=== PATIENT | male | born 1950 | race Caucasian/White ===

== ENCOUNTER 2018-02-22 20:29 | Emergency (ER) | payer OTHER, MEDICARE ==
[2018-02-22] MEDS ORDERED: VANCOMYCIN HCL 500 MG in D5W MINI-BAG PLUS 100 ML IV (21:45)
[2018-02-22] MEDS ORDERED: CEFEPIME HCL 1 GM in D5W MINI-BAG PLUS 50 ML IV (21:45)
[2018-02-22 22:55] LABS: BASO # 0.1 10^3/uL (0.0-0.2); BASO % 0.7 % (0.0-1.0); EOS # 0.2 10^3/uL (0.0-0.50); EOS % 1.5 % (0.0-3.0); HEMATOCRIT 32.4 % (42.0-52.0); IMMATURE GRANULOCYTE % 4.6 % (0-3.0); LYMPH # 1.4 10^3/uL (1.5-4.5); LYMPH % 10.9 % (24.0-44.0); MEAN CORPUSCULAR HEMOGLOBIN 30.9 pg (27.0-33.0); MONO # 1.5 10^3/uL (0.0-0.8); NEUTROPHILS # 8.9 10^3/uL (1.8-7.7); NEUTROPHILS % 70.3 % (36.0-66.0); PLATELET COUNT, AUTOMATED 239 10^3/uL (150-450); RED BLOOD COUNT 3.56 10^6/uL (4.30-6.10); RED CELL DISTRIBUTION WIDTH 13.2 % (11.5-14.5); WHITE BLOOD COUNT 12.7 10^3/uL (4.0-10.0)
[2018-02-22 23:18] LABS: ANION GAP 10 MEQ/L (8-16); BLOOD UREA NITROGEN 23 MG/DL (7-18); CALCIUM LEVEL 8.4 MG/DL (8.8-10.2); CARBON DIOXIDE LEVEL 22 MEQ/L (21-32); CHLORIDE LEVEL 102 MEQ/L (98-107); GLOMERULAR FILTRATION RATE > 60.0 (>42); GLUCOSE, FASTING 135 MG/DL (70-100); SODIUM LEVEL 134 MEQ/L (136-145)
[2018-02-23 00:13] LABS: C REACTIVE PROTEIN QUANTITATIV 9.96 MG/DL (0.00-0.30)
== END 2018-02-23 01:38 | disposition short-term general hospital (02) ==
LOC: M ED 02-23 01:38
DX: M00.9 Pyogenic arthritis, unspecified (principal); Z96.652 Presence of left artificial knee joint; I10 Essential (primary) hypertension; I25.10 Atherosclerotic heart disease of native coronary artery without angina pectoris; K21.9 Gastro-esophageal reflux disease without esophagitis; Z79.899 Other long term (current) drug therapy; Z79.01 Long term (current) use of anticoagulants; Z88.8 Allergy status to other drugs, medicaments and biological substances
CPT/HCPCS: 73560

== ENCOUNTER 2018-05-11 09:24 | Inpatient (IN) | payer MEDICARE, OTHER ==
[2018-05-11] MEDS: ONDANSETRON 4MG/2ML VIAL (J2405) IV (09:58)
[2018-05-11] MEDS: MORPHINE 4 MG/ML 1ML VIAL/SYRINGE (J2270) IV ×5 (09:58→17:45)
[2018-05-11] MEDS: NS 1,000 ML IV (10:03)
[2018-05-11] MEDS ORDERED: NS 1,000 ML IV (10:45)
[2018-05-11 11:34] LABS: BASO # 0.1 10^3/uL (0.0-0.2); BASO % 0.6 % (0.0-1.0); EOS # 0.2 10^3/uL (0.0-0.50); EOS % 2.7 % (0.0-3.0); HEMATOCRIT 35.5 % (42.0-52.0); HEMOGLOBIN 11.2 g/dl (13.5-17.5); IMMATURE GRANULOCYTE % 0.5 % (0-3.0); LYMPH # 0.6 10^3/uL (1.5-4.5); LYMPH % 6.7 % (24.0-44.0); MEAN CORPUSCULAR HEMOGLOBIN 26.7 pg (27.0-33.0); MEAN CORPUSCULAR HGB CONC 31.5 g/dl (32.0-36.5); MEAN CORPUSCULAR VOLUME 84.5 fl (80.0-96.0); MONO # 0.6 10^3/uL (0.0-0.8); MONO % 6.5 % (0.0-5.0); PLATELET COUNT, AUTOMATED 155 10^3/uL (150-450); RED CELL DISTRIBUTION WIDTH 13.3 % (11.5-14.5); WHITE BLOOD COUNT 8.4 10^3/uL (4.0-10.0)
[2018-05-11 11:45] LABS: INR 1.05; PROTHROMBIN TIME 13.8 SECONDS (12.1-14.4)
[2018-05-11 12:08] LABS: ALBUMIN 3.3 GM/DL (3.2-5.2); ALKALINE PHOSPHATASE 71 U/L (45-117); ALT/SGPT 33 U/L (12-78); ANION GAP 6 MEQ/L (8-16); AST/SGOT 25 U/L (7-37); BILIRUBIN,TOTAL 0.5 MG/DL (0.2-1.0); BLOOD UREA NITROGEN 20 MG/DL (7-18); CALCIUM LEVEL 7.9 MG/DL (8.8-10.2); CARBON DIOXIDE LEVEL 26 MEQ/L (21-32); CHLORIDE LEVEL 112 MEQ/L (98-107); CREATININE FOR GFR 1.02 MG/DL (0.70-1.30); GLOMERULAR FILTRATION RATE > 60.0 (>42); GLUCOSE, FASTING 118 MG/DL (70-100); POTASSIUM SERUM 4.4 MEQ/L (3.5-5.1); SODIUM LEVEL 144 MEQ/L (136-145); TOTAL PROTEIN 5.5 GM/DL (6.4-8.2)
[2018-05-11] MEDS ORDERED: PERCOCET 5MG/325MG TAB PO ×2 (14:00→23:00)
[2018-05-11] MEDS ORDERED: ONDANSETRON 4MG/2ML VIAL (J2405) IV (14:00)
[2018-05-11] MEDS: LR 1,000 ML IV (15:36)
[2018-05-11] MEDS ORDERED: BUPIVACAINE/EPIN 0.25% 30 ML VIAL As Ordered (21:09)
[2018-05-11] MEDS ORDERED: dexameTHASONE 4 MG/ML 1ML VIAL (J1100) As Ordered (22:09)
[2018-05-11] MEDS ORDERED: ONDANSETRON 4MG/2ML VIAL (J2405) As Ordered (22:09)
[2018-05-11] MEDS ORDERED: LIDOCAINE 2% INJ 100 MG/5 ML SDV (FOR ANES.) As Ordered (22:09)
[2018-05-11] MEDS ORDERED: fentaNYL 100 MCG/2 ML INJECTION (J3010) As Ordered (22:09)
[2018-05-11] MEDS ORDERED: MIDAZOLAM INJ 2 MG/2 ML VIAL (J2250) As Ordered (22:09)
[2018-05-11] MEDS ORDERED: KETAMINE HCL 200 MG/20 ML VIAL As Ordered (22:09)
[2018-05-11] MEDS ORDERED: ePHEDrine SULFATE 25 MG/5 ML(5MG/ML) SYRINGE As Ordered (22:10)
[2018-05-11] MEDS ORDERED: BUPIVACAINE HCL 0.5% 30 ML VIAL As Ordered (22:10)
[2018-05-11] MEDS: ceFAZolin 1GM INJ (J0690 PER 500MG) As Ordered (22:12)
[2018-05-11] MEDS ORDERED: PROPOFOL 200 MG/20 ML VIAL As Ordered ×3 (22:30)
[2018-05-12] MEDS: rOPINIRole 1MG TAB PO ×2 (00:41→09:45)
[2018-05-12] MEDS: SENOKOT S TAB PO ×2 (00:41→09:45)
[2018-05-12] MEDS: ROSUVASTATIN 10 MG TAB (CRESTOR) PO (00:41)
[2018-05-12] MEDS: METOPROLOL TART 12.5 MG PER 1/2 TAB PO (00:41)
[2018-05-12] MEDS: LR 1,000 ML IV (00:41)
[2018-05-12] MEDS: PERCOCET 5MG/325MG TAB PO ×4 (02:40→15:55)
[2018-05-12 06:41] LABS: HEMATOCRIT 32.9 % (42.0-52.0); HEMOGLOBIN 10.3 g/dl (13.5-17.5); MEAN CORPUSCULAR HEMOGLOBIN 25.9 pg (27.0-33.0); MEAN CORPUSCULAR HGB CONC 31.3 g/dl (32.0-36.5); MEAN CORPUSCULAR VOLUME 82.9 fl (80.0-96.0); PLATELET COUNT, AUTOMATED 132 10^3/uL (150-450); RED BLOOD COUNT 3.97 10^6/uL (4.30-6.10); RED CELL DISTRIBUTION WIDTH 13.3 % (11.5-14.5); WHITE BLOOD COUNT 8.5 10^3/uL (4.0-10.0)
[2018-05-12 07:10] LABS: ANION GAP 8 MEQ/L (8-16); BLOOD UREA NITROGEN 16 MG/DL (7-18); CALCIUM LEVEL 8.4 MG/DL (8.8-10.2); CARBON DIOXIDE LEVEL 25 MEQ/L (21-32); CHLORIDE LEVEL 105 MEQ/L (98-107); CREATININE FOR GFR 1.21 MG/DL (0.70-1.30); GLOMERULAR FILTRATION RATE > 60.0 (>42); GLUCOSE, FASTING 242 MG/DL (70-100); MAGNESIUM LEVEL 1.8 MG/DL (1.8-2.4); POTASSIUM SERUM 4.1 MEQ/L (3.5-5.1); SODIUM LEVEL 138 MEQ/L (136-145)
[2018-05-12] MEDS: PANTOPRAZOLE 40MG TAB (PROTONIX) PO (09:45)
[2018-05-12] MEDS: LISINOPRIL 5 MG TAB PO (09:46)
[2018-05-12] MEDS ORDERED: RIVAROXABAN 10 MG TAB (XARELTO) PO (18:00)
== END 2018-05-12 16:10 | disposition home or self-care (01) | DRG 482 ==
LOC: M ED 09:24 → M ED INP 13:56 → M MS5PR 17:10
PROC: 0QS706Z Reposition Left Upper Femur with Intramedullary Internal Fixation Device, Open Approach (ICD-10-PCS; principal; 2018-05-11 13:32)
DX: S72.142A Displaced intertrochanteric fracture of left femur, initial encounter for closed fracture (principal); I25.10 Atherosclerotic heart disease of native coronary artery without angina pectoris; K21.9 Gastro-esophageal reflux disease without esophagitis; E78.5 Hyperlipidemia, unspecified; I10 Essential (primary) hypertension; G25.81 Restless legs syndrome; G47.33 Obstructive sleep apnea (adult) (pediatric); W18.09XA Striking against other object with subsequent fall, initial encounter; Y92.018 Other place in single-family (private) house as the place of occurrence of the external cause; Z95.1 Presence of aortocoronary bypass graft; Z90.49 Acquired absence of other specified parts of digestive tract; Z87.891 Personal history of nicotine dependence; Z79.82 Long term (current) use of aspirin; Z79.899 Other long term (current) drug therapy; Z96.652 Presence of left artificial knee joint

== ENCOUNTER → 2018-08-16 | Outpatient (REF) | payer MEDICARE, OTHER ==
[~2018-08-16] MED LIST: /ACYC20CA PO; /PANT40TA PO; ACYC200CA PO; AMLO25TA PO; ASPI325T PO; ASPI81CH PO; ASPI81TA85 PO; ATOR1TAB21 PO; ATOR80TA59 PO; AUGM875T27 PO; BETA0.0543 TOP; CIPR500T89 PO; CRES10TA32 PO; CRES40TA PO; EXCETAB68 PO; FLAG500T PO; FLUO20CA19 PO; FURO20TA2 PO; FURO80TA2 PO; IBUP600T26 PO; ISOS30TA4 PO; ISOS60TA2 PO; K-TA10TA2 PO; K-TA1TAB PO; LISI-538 PO; LISI-542 PO; LISI40TAB PO; LISI5TAB PO; METH20TA29 PO; METH5TAB76 PO; METO1TAB87 PO; METO25TAB PO; NEUR600T PO; NITR4TASL SL; OMEP20CA3 PO; OXYC30TA84 PO; PANT40TA3 PO; PERC5TAB12 PO; PERCOCET PO; ROPI1TAB PO; ROPI2TAB PO; SIME80TA PO; SIMV40TA2 PO; SIMV80TA13 PO; TEMA15CA2 PO; TRAZO50TA PO; TYLE325T5 PO; VIAG100T PO; XARE10TA PO; ZOCO20TA PO
[2018-08-16 23:00] LABS: INFLUENZA A AMPLIFICATION NEGATIVE (NEGATIVE); INFLUENZA B AMPLIFICATION NEGATIVE (NEGATIVE)
== END ==
LOC: M LAB REF 10:36
PROVIDERS: ATTEND Physician Assistant Medical
DX: J11.1 Influenza due to unidentified influenza virus with other respiratory manifestations (principal)

== ENCOUNTER 2020-05-14 12:59 | Inpatient (IN) | payer MEDICARE, OTHER ==
[~2020-05-14 12:59] MED LIST changes: -/ACYC20CA PO; -/PANT40TA PO; +ACYC1CAP20 PO; +ACYC1CAP8 PO; -ACYC200CA PO; +ASPI-1 PO; -ASPI325T PO; -ASPI81CH PO; +ASPI81CH49 PO; -ASPI81TA85 PO; +ASPI81TA86 PO; +CRES10TA PO; -CRES10TA32 PO; -FLUO20CA19 PO; +FLUO20CA22 PO; +LISI40TA52 PO; -LISI40TAB PO; +METO1TAB63 PO; -METO25TAB PO; +OXYC1TAB23 PO; +PANT40TA29 PO; -PANT40TA3 PO; -PERCOCET PO; +PROT1TAB2 PO; -ROPI1TAB PO; +ROPI1TAB3 PO; -SIMV40TA2 PO; +SIMV40TA20 PO; +TRAZ1TAB6 PO; -TRAZO50TA PO
[2020-05-14 14:20] LABS: BASO % 0.5 % (0.0-1.0); EOS # 0.1 10^3/uL (0.0-0.5); EOS % 1.2 % (0.0-3.0); HEMATOCRIT 47.3 % (42.0-52.0); HEMOGLOBIN 15.4 g/dl (13.5-17.5); LYMPH # 0.8 10^3/uL (1.5-5.0); LYMPH % 11.8 % (24.0-44.0); MEAN CORPUSCULAR HGB CONC 32.6 g/dl (32.0-36.5); MONO # 0.3 10^3/uL (0.0-0.8); MONO % 5.1 % (0.0-5.0); NEUTROPHILS # 5.2 10^3/uL (1.5-8.5); PLATELET COUNT, AUTOMATED 145 10^3/uL (150-450); WHITE BLOOD COUNT 6.4 10^3/uL (4.0-10.0)
[2020-05-14 14:32] LABS: INR 1.09; PROTHROMBIN TIME 14.3 SECONDS (12.5-14.3)
[2020-05-14 15:06] LABS: ACETAMINOPHEN LEVEL < 2.0 UG/ML (10.0-30.0); ALBUMIN 3.9 GM/DL (3.2-5.2); ALT/SGPT 39 U/L (12-78); BILIRUBIN,DIRECT 0.2 MG/DL (0.0-0.2); BILIRUBIN,TOTAL 0.5 MG/DL (0.2-1.0); BLOOD UREA NITROGEN 13 MG/DL (7-18); CALCIUM LEVEL 8.6 MG/DL (8.8-10.2); CARBON DIOXIDE LEVEL 26 MEQ/L (21-32); CHLORIDE LEVEL 106 MEQ/L (98-107); CREATININE FOR GFR 0.97 MG/DL (0.70-1.30); GLOMERULAR FILTRATION RATE > 60.0 (>42); GLUCOSE, FASTING 105 MG/DL (70-100); LIPASE 154 U/L (73-393); POTASSIUM SERUM 3.9 MEQ/L (3.5-5.1); SALICYLATE LEVEL < 1.7 MG/DL (5.0-30.0); SODIUM LEVEL 137 MEQ/L (136-145); TOTAL PROTEIN 7.1 GM/DL (6.4-8.2)
[2020-05-14 15:59] LABS: AMPHETAMINES LEVEL URINE NEGATIVE (NEGATIVE); BARBITURATES URINE NEGATIVE (NEGATIVE); BENZODIAZEPINES URINE NEGATIVE (NEGATIVE); CANNABINOIDS URINE NEGATIVE (NEGATIVE); COCAINE METABOLITE URINE NEGATIVE (NEGATIVE); METHADONE URINE NEGATIVE (NEGATIVE); OPIATES URINE NEGATIVE (NEGATIVE); PHENCYCLIDINE URINE NEGATIVE (NEGATIVE)
--- NOTE | 2020-05-14 19:11 | REP ---
INDICATION: swelling COMPARISON: None. FINDINGS: There is no fracture or dislocation. There is demineralization. There is a DIP and PIP joint space narrowing compatible with early osteoarthritic change. There is advanced osteoarthritis at the thumb base. There are no lytic, blastic or destructive skeletal changes. There are no calcifications or foreign bodies. I suspect soft tissue swelling at the thenar eminence. There is no soft tissue swelling over the dorsum. IMPRESSION: Osteoarthritic changes as described. No fracture or dislocation. No calcifications or foreign bodies. Soft tissue swelling as described. <Electronically signed by Nick Vega > 05/14/20 [id number]
[2020-05-14] MEDS ORDERED: LORazepam 2 MG TAB PO PRN ×2 (19:45→20:30)
[2020-05-14] MEDS ORDERED: SERT-138 PO (20:14)
[2020-05-14] MEDS ORDERED: ASPI81TA26 PO (20:14)
[2020-05-14] MEDS ORDERED: TRAZ-186 PO (20:14)
[2020-05-14] MEDS ORDERED: MAGN400T2 PO (20:14)
[2020-05-14] MEDS ORDERED: BETA0.0543 TOP (20:14)
[2020-05-14] MEDS ORDERED: [UNRECOGNIZED DRUG - OTHER] (20:16)
[2020-05-14] MEDS ORDERED: MOM 30ML SUSPENSION UDC PO PRN (20:30)
[2020-05-14] MEDS ORDERED: ACETAMINOPHEN TAB 650MG DOSE (2X325MG) PO PRN (20:30)
[2020-05-14] MEDS ORDERED: MAALOX 30 ML SUSP *UDC PO PRN (20:30)
[2020-05-14] MEDS ORDERED: OLANZapine ORAL DISINTEGRATING TAB 5MG PO PRN (20:30)
[2020-05-14] MEDS ORDERED: COMMENTS (20:31)
[2020-05-14] MEDS ORDERED: THIAMINE 100 MG TAB PO SCH (21:00)
[2020-05-14 22:11] VITALS: BP 132/70
[2020-05-14 22:22] VITALS: BP 132/70
[2020-05-14] MEDS: METOPROLOL TART 25 MG TABLET PO SCH (22:26)
[2020-05-14] MEDS: traZODone 50 MG TAB PO PRN (22:28)
[2020-05-14] MEDS: THIAMINE 100 MG TAB PO SCH (22:28)
[2020-05-14] MEDS: MAGNESIUM OXIDE 400 MG TAB (MAG-OX) PO SCH (22:28)
[2020-05-14] MEDS: rOPINIRole 1MG TAB PO SCH (22:41)
[2020-05-14] MEDS: ROSUVASTATIN 10 MG TAB (CRESTOR) PO SCH (22:41)
[2020-05-15 06:17] VITALS: BP 142/78
[2020-05-15 06:20] VITALS: BP 142/78
[2020-05-15] MEDS: SERTRALINE HCL 50 MG TAB PO SCH (08:46)
[2020-05-15] MEDS: ASPIRIN 81 MG ENTERIC TAB PO SCH (08:47)
[2020-05-15] MEDS: rOPINIRole 1MG TAB PO SCH ×2 (08:47→20:21)
[2020-05-15] MEDS: MAGNESIUM OXIDE 400 MG TAB (MAG-OX) PO SCH ×2 (08:47→21:31)
[2020-05-15] MEDS: FOLIC ACID 1 MG TAB PO SCH (08:48)
[2020-05-15] MEDS: PANTOPRAZOLE 40MG TAB (PROTONIX) PO SCH (08:49)
[2020-05-15] MEDS: lisinopriL 5 MG TAB PO SCH (08:49)
[2020-05-15] MEDS: MULTIVITAMINS/MINERALS THERAP 1 TAB PO SCH (08:49)
[2020-05-15] MEDS: THIAMINE 100 MG TAB PO SCH ×2 (08:50→20:18)
[2020-05-15] MEDS ORDERED: FOLIC ACID 1 MG TAB PO SCH (09:00)
[2020-05-15] MEDS ORDERED: MULTIVITAMINS/MINERALS THERAP 1 TAB PO SCH (09:00)
[2020-05-15] MEDS ORDERED: ISOSORBIDE MON. (IMDUR) 60 MG XR TAB PO SCH (09:00)
[2020-05-15] MEDS ORDERED: SERTRALINE 100 MG TAB PO SCH (09:00)
--- NOTE | 2020-05-15 13:28 | MHHPEPDOC ---
General Date Of Admission: May 14, 2020 Legal Status: 9.39 Chief Complaint "I was working on peeling garlic and the next thing I know I was on the floor. 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 According to his , she called 911 because he was intoxicated and fell on the kitchen floor. When he was brought tot ED, he was uncooperative with the Police and EMS and [facility] staff. Patient's provided collateral reporting that he had been making frequent suicidal comments to her, expressing hopelessness. She reports that he drinks to intoxication and is at risk for suicide. He reports that he has stopped taking his medications and has been admitted for Alcohol Use. His Blood Alcohol was 0.23 Psychiatric Review of Systems Depression (2 or more weeks): depressed mood, insomnia/hypersomnia (chronic sleep issues: Apnea and restless leg syndrome), psychomotor changes Danielle (4 or more days of): denies Psychosis: denies PTSD: denies Anxiety: denies Past Psychiatric History Previous Psychiatric Diagnosis: Depression Previous Psychiatric Admissions: Second hospitalization Suicide Attempts: No history, no ideation in the past (per , he has been making more suicidal statements in the last few weeks) Psychiatric Follow-up: [facility], sees Dr. Roth and Therapist Octavio Psychiatric medications: Zoloft 150 mg Past Medical History Medical Problems Low blood pressure Cardiac/blood pressure Cholesterol Restless Leg Sleep Apnea ETOH - denies that this is a problem "I don't have to drink, I don't have to spend my last few dollars to get a drink, I don't dwell on it." Quadruple By Pass Gall Bladder Surgery Appendectomy Left Knee Replacement x 2 Left Hip Pinned Head Injury: Yes Seizures: No Hospitalizations: Yes Surgeries: Yes Family Medical/Psychiatric HX Medical Problems Father - of [place], history of Throat Cancer Mother - of old age, diabetic Sister - Metastatic Cancer Brother - probable ETOH Psychiatric Disorders: No Addiction: Yes Suicide Attemps/Completions: No Addiction History nicotine (History of use, stopped in 1985), alcohol (Sporadic use, drink 2-3 times per week and other times not at all - will have 4-5 shots of Vodka if he drinks. Had a 30 year of Sobriety, relapsed in 2016) Social History Childhood: Born in [place], both parents growing up, 2 brothers and 2 sister (now only 1 brother and 1 sister) Patient was second to the youngest Abuse/Trauma: denies Current Living Situation: Currently living with , one dog in [place] Education: Bachelor's degree in Accounting and Economics Employment: [employer], [employer] [place] - Currently Retired Social Support: and Family Legal: past history - had some time in [facility] senior care and [facility] Marital: 49 1/2 years. Mental Status Examination General Appearance: well groomed, appears stated age, hospital scubs/clothing Build: overweight Demeanor: average, other (minimizing) Eye Contact: average Activity: average Behavior: cooperative Speech: clear, normal volume, reg/rate,rhythm,volume Mood: euthymic Affect: full Thought Process: logical/linear Thought Content (Delusions): none reported Thought Content (Other): none reported Thought Content (Aggressive): none reported Perception (Hallucinations): none reported Perception (Other): none reported Cognition (Impairment of): none reported Cognition(Intelligence Est.): average Oriented: Awake, Alert, Oriented times three Insight: fair Judgment: Fair Psychosis: Denies Diagnoses Unspecified Depressive Disorder Alcohol Use Disorder Alcohol Intoxication A-FIB/CHADSVASC A-FIB History Current/History of A-Fib/PAF?: No Assessment Patient presents today with no depressive symptoms, denies suicidality, he also denies that he has an alcohol problem. He is [facility] at [facility] in [place] and sees a psychiatrist Gonzalez and Therapist Octavio. Prior to his psychiatric interview, he had a hypotensive episode, reporting feeling extremely dizzy, lightheaded, nauseous and having difficulty walking, stated that he felt like he was going to vomit. In his interview, patient appears to minimize his drinking, but it was forwarded on to me that patient is starting an addiction treatment at the [facility]. He states that he doesn't have to drink and that he doesn't drink often. His accounting of his substance use is vastly different than his 's reporting, whom I believe to be a better historian for this patient. According to his , the garbage is full of liquor bottles and he drinks it with soda therefore it is difficult to gauge how much he is drinking according to hsi . Patient to start his home medications. At this time, we will observe for any syncopal or hypotensive issues. He will be admitted to [facility] on a 9.39 legal status for depression and suicidal ideation, and will be discharged when he is stable. Initial Treatment Plan 1. Patient was admitted on a [9.39] status. 2. Complete history was obtained. 3. With patients permission, family will be contacted and database will be expanded. 4. Patients medication regimen will be reviewed and changed accordingly. 5. Patient will be provided with protected environment. 6. Patient will be treated with individual, group, and milieu therapies. 7. Patient will receive supportive psych-education. 8. Discharge planning will commence immediately. 9. Outpatient follow-up treatment will be strongly recommended. 10. The initial treatment plan will focus initially on: * Depression. * Risk for suicide * Alcohol Use. ESTIMATED LENGTH OF STAY: 3-5 DAYS. TIME SPENT COUNSELING AND COORDINATING INITIAL CARE: 50 minutes. Vital Signs Vital Signs Date Time Temp Pulse Resp B/P (MAP) Pulse Ox O2 Delivery O2 Flow Rate FiO2 05/15/20 08:47 138/80 05/15/20 06:20 98.2 60 16 Room Air 05/14/20 22:11 95 Laboratory Data 24H Labs Laboratory Tests 2 05/14/20 13:55: Immature Granulocyte % (Auto) 1.4, Neutrophils (%) (Auto) 80.0H, Lymphocytes (%) (Auto) 11.8L, Monocytes (%) (Auto) 5.1H, Eosinophils (%) (Auto) 1.2, Basophils (%) (Auto) 0.5, Neutrophils # (Auto) 5.2, Lymphocytes # (Auto) 0.8L, Monocytes # (Auto) 0.3, Eosinophils # (Auto) 0.1, Basophils # (Auto) 0.0, Nucleated Red Blood Cells % (auto) 0.0, Prothrombin Time 14.3H, Prothromb Time International Ratio 1.09, Anion Gap 5L, Glomerular Filtration Rate > 60.0, Calcium Level 8.6L, Total Bilirubin 0.5, Direct Bilirubin 0.2, Aspartate Amino Transf (AST/SGOT) 25, Alanine Aminotransferase (ALT/SGPT) 39, Alkaline Phosphatase 95, Total Protein 7.1, Albumin 3.9, Albumin/Globulin Ratio 1.2, Lipase 154, Salicylates Level < 1.7L, Acetaminophen Level < 2.0L, Ethyl Alcohol Level 0.230H 05/14/20 15:13: Urine Opiates Screen NEGATIVE, Urine Methadone Screen NEGATIVE, Urine Barbiturates Screen NEGATIVE, Urine Phencyclidine Screen NEGATIVE, Urine Amphetamines Screen NEGATIVE, Urine Benzodiazepines Screen NEGATIVE, Urine Cocaine Metabolite Screen NEGATIVE, Urine Cannabinoids Screen NEGATIVE 05/14/20 19:47: Coronavirus (COVID-19)(PCR) NEGATIVE, Influenza Type A (RT-PCR) NEGATIVE, Influenza Type B (RT-PCR) NEGATIVE, Respiratory Syncytial Virus (PCR) NEGATIVE CBC/BMP Laboratory Tests 05/14/20 13:55 Medications Scheduled Aspirin (Aspirin EC) 81 Mg Tablet.dr, 81 MG PO DAILY, (Reported) Isosorbide Mononitrate (Isosorbide Mononitrate ER) 60 Mg Tab, 60 MG PO DAILY, (Reported) Lisinopril (Lisinopril) 5 Mg Tab, 2.5 MG PO DAILY, (Reported) Magnesium Oxide (Magnesium Oxide) 400 Mg Tablet, 400 MG PO BID, (Reported) Metoprolol Tartrate (Metoprolol Tartrate) 25 Mg Tab, 12.5 MG PO QHS, (Reported) Pantoprazole Sodium (Pantoprazole Sodium) 40 Mg Tab, 40 MG PO DAILY, (Reported) Ropinirole HCl (Ropinirole HCl) 1 Mg Tab, 1 MG PO BID, (Reported) Rosuvastatin Calcium (Crestor) 40 Mg Tab, 40 MG PO QPM, (Reported) Trazodone HCl (Trazodone HCl) 50 Mg Tablet, 50 MG PO QHS, (Reported) Scheduled PRN Betamethasone Dipropionate (Betamethasone Dipropionate) 0.05% Cream..g., 1 APLCT TOP BID PRN for RASH, (Reported) APPLY TO AFFECTED AREAS Nitroglycerin (Nitrostat) 0.4 Mg Subl, 0.4 MG SL NITRO PRN for CHEST PAIN, (Reported) Miscellaneous Medications [Comments] , (Reported) [facility] REFUSED TO TALK TO MED HIDTORIAN. [Comments] , (Reported) PT REFUSED TO TALK TO MED HISTORIAN, MED LIST WAS GIVEN BY THE MD Allergies Coded Allergies: No Known Allergies (Unverified , 05/14/20) KULWANT URENA NP May 15, 2020 12:43
[2020-05-15 16:00] VITALS: BP 114/63
[2020-05-15 16:20] VITALS: BP 114/63
--- NOTE | 2020-05-15 16:20 | HPEPDOC ---
[facility] Medical History & Physical Date of Admission May 15, 2020 Date of Service: May 15, 2020 Attending Physician: TIA SANTACRUZ MD History and Physical CHIEF COMPLAINT: Depression, alcohol intoxication, suicidal ideation HISTORY OF PRESENT ILLNESS: 70-year-old M patient with underlying medical history of coronary arterial disease with coronary artery bypass graft (CABG) in 2013, gastroesophageal r eflux disease (GERD), dyslipidemia, hypertension, restless legs, obstructive sleep apnea not on CPAP at home, history of depression who presented from home via EMS after his called EMS when he fell intoxicated while expressing that he does not want to live anymore. In the ED, he was hemodynamically stable and afebrile, was covid-19 negative, with an unremarkable CBC, BMP and liver profile, while ethanol level was elevated. [facility] with concern for passive suicidal thoughts with his reporting that he has been very depressed, drinking and expresses a desire to have his life end. This morning while in the [facility], he had an episode of brief dizziness and was notably hypotensive to SBP 60s approximately 1 hour after receiving his imdur and lisinopril. Approximately 30 minutes later his dizzy spell resolved and he was normotensive without any complaints. When I spoke with him, he suspects that he fell yesterday after such an episode but denies any chest pain, palpitations, vision changes, acute headaches, shortness of breath or seizure like activity. He has not had any sick contacts, fever, chills, dysuria, hematuria, hematochezia or hematemesis. PAST MEDICAL HISTORY: 1. Coronary arterial disease with CABG 2. Gastroesophageal reflux disease (GERD). 3. Dyslipidemia. 4. Hypertension. 5. Restless legs. 6. Obstructive sleep apnea. PAST SURGICAL HISTORY: 1. CABG 2. Appendectomy. 3. Cholecystectomy. 4. Left knee surgery times two. 5. Left hip surgery 6. Bilateral cataract surgery SOCIAL HISTORY: and lives with . Quit smoking in 1985. Drinks alcohol daily. However appears to minimize amount and daily drinking behavior and at some point even denies and contradicts history he gave earlier that he drinks daily. No illicit drug use. FAMILY HISTORY: Denies knowledge of chronic illness in his family REVIEW OF SYSTEMS: As noted above. All other elements of the 12 point review of systems are negative. PHYSICAL EXAMINATION: VITAL SIGNS: HDS, afebrile, see below for details GENERAL: AOx3, NAD, sitting up in bed HEENT: Normocephalic, atraumatic, MMM, PERRLA, EOMI PULMONARY: CTAB CARDIAC: RRR, no mrg, S1, S2. ABDOMEN: Soft, nontender. Normoactive bowel sounds. EXTREMITIES: No clubbing, cyanosis or edema. WWP NEURO: No tremors as this time, clear speech, 5/5 strength in all four extremities, nonfocal examination PSYCH: AOx3 LABORATORY DATA: Reviewed ASSESSMENT: 70-year-old M with a history of CAD s/p CABG, GERDHTN, HLD, TONJA, RLS, depression, alcohol use disorder who presented status post mechanical fall? while intoxicated and [facility] for depression and history of suicidal statements. Coronary arterial disease s/p CABG: -continue home ASA, lisinopril, metoprolol -continue PRN SLN -Holding Imdur given recent symptomatic hypotension Gastroesophageal reflux disease (GERD): -Continue proton pump inhibitor. Dyslipidemia: -Continue statin. Hypertension. Currently normotensive. -Holding Imdur. -Continue Lisinopril -Continue metoprolol DVT prophylaxis: -ambulatory Depression with expression of suicidal thoughts: -Per primary psych team Alcohol use disorder: -CIWA protocol per primary psych team RLS: -continue home ropinirole I will follow up tomorrow morning as I monitor further symptomatic hypotensive episodes. Vital Signs Vital Signs Date Time Temp Pulse Resp B/P (MAP) Pulse Ox O2 Delivery O2 Flow Rate FiO2 05/15/20 08:47 138/80 05/15/20 06:20 98.2 60 16 Room Air 05/14/20 22:11 95 Laboratory Data Labs 24H Laboratory Tests 2 05/14/20 19:47: Coronavirus (COVID-19)(PCR) NEGATIVE, Influenza Type A (RT-PCR) NEGATIVE, Influenza Type B (RT-PCR) NEGATIVE, Respiratory Syncytial Virus (PCR) NEGATIVE Home Medications Scheduled Aspirin (Aspirin EC) 81 Mg Tablet.dr, 81 MG PO DAILY Isosorbide Mononitrate (Isosorbide Mononitrate ER) 60 Mg Tab, 60 MG PO DAILY Lisinopril (Lisinopril) 5 Mg Tab, 2.5 MG PO DAILY Magnesium Oxide (Magnesium Oxide) 400 Mg Tablet, 400 MG PO BID Metoprolol Tartrate (Metoprolol Tartrate) 25 Mg Tab, 12.5 MG PO QHS Pantoprazole Sodium (Pantoprazole Sodium) 40 Mg Tab, 40 MG PO DAILY Ropinirole HCl (Ropinirole HCl) 1 Mg Tab, 1 MG PO BID Rosuvastatin Calcium (Crestor) 40 Mg Tab, 40 MG PO QPM Sertraline HCl (Sertraline HCl) 100 Mg Tablet, 150 MG PO DAILY Trazodone HCl (Trazodone HCl) 50 Mg Tablet, 50 MG PO QHS Scheduled PRN Betamethasone Dipropionate (Betamethasone Dipropionate) 0.05% Cream..g., 1 APLCT TOP BID PRN for RASH APPLY TO AFFECTED AREAS Nitroglycerin (Nitrostat) 0.4 Mg Subl, 0.4 MG SL NITRO PRN for CHEST PAIN Miscellaneous Medications [Comments] MED LIST OBTAINED FROM THE [facility], PT REFUSED TO TALK TO MED HIDTORIAN. [Comments] PT REFUSED TO TALK TO MED HISTORIAN, MED LIST WAS GIVEN BY THE ID Allergies Coded Allergies: No Known Allergies (Unverified , 05/14/20) A-FIB/CHADSVASC A-FIB History Current/History of A-Fib/PAF?: No Current PO Anticoag Therapy: No Age/Risk Factor Scoring CHADSVASC: CHADSVASC Response (Comments) Value Age Risk Factor Age 65-74 years old 1 Gender Risk Factor Male 0 Hx of CHF No 0 Hx of HTN Yes 1 Hx of Stroke/TIA/or VTE No 0 Hx of Diabetes No 0 Hx of Vascular Disease Yes 1 Total 3 Treatment Treatment ordered: NONE Reason Anticoagulant not given: Not indicated/[id number] TIA SANTACRUZ MD May 15, 2020 16:20
[2020-05-15] MEDS: METOPROLOL TART 25 MG TABLET PO SCH (20:19)
[2020-05-15] MEDS: traZODone 50 MG TAB PO PRN (20:20)
[2020-05-15] MEDS: ROSUVASTATIN 10 MG TAB (CRESTOR) PO SCH (20:21)
[2020-05-15 22:00] VITALS: BP 167/87
[2020-05-16 06:25] VITALS: BP 133/64
[2020-05-16] MEDS: PANTOPRAZOLE 40MG TAB (PROTONIX) PO SCH (08:35)
[2020-05-16] MEDS: MULTIVITAMINS/MINERALS THERAP 1 TAB PO SCH (08:35)
[2020-05-16] MEDS: THIAMINE 100 MG TAB PO SCH ×2 (08:35→20:37)
[2020-05-16] MEDS: FOLIC ACID 1 MG TAB PO SCH (08:36)
[2020-05-16] MEDS: rOPINIRole 1MG TAB PO SCH ×2 (08:36→20:40)
[2020-05-16] MEDS: ASPIRIN 81 MG ENTERIC TAB PO SCH (08:36)
[2020-05-16] MEDS: MAGNESIUM OXIDE 400 MG TAB (MAG-OX) PO SCH ×2 (08:36→20:41)
[2020-05-16] MEDS: lisinopriL 5 MG TAB PO SCH (08:37)
[2020-05-16] MEDS: SERTRALINE HCL 50 MG TAB PO SCH (09:00)
--- NOTE | 2020-05-16 12:45 | MHIPNPDOC ---
[facility] Progress Note Progress Note DATE OF SERVICE: 05/16/20 HISTORY: The patient is met with today, he reports he is feeling fine and denies any depression. He reports that he had not been drinking "that much" prior to himself coming in, apparently is concerned about his blood pressure but otherwise has been engaged and friendly without any major issues. As the interview goes on he does admit that his alcohol use may be a problem.. VITAL SIGNS: See below. NEW TEST RESULTS: None. CURRENT MEDICATIONS: See below. MENTAL STATUS EXAMINATION: General: [Well dressed with good hygiene] Speech: [Spontaneous and fluid] Thought processes: [Linear and logical] Thought content: [Future orientated] Abstract reasoning, and computation: [Intact] Description of associations: [Intact] Description of abnormal or psychotic thoughts:[Denies any suicidal or homicidal ideation. Denies any auditory or visual hallucinations. Does not appear to be responding to internal stimuli. Does not appear to be endorsing any bizarre or paranoid ideation.] Judgment: [fair] Insight: [fair] Orientation: [Alert and orientated 3] Recent and remote memory: [Intact] Attention span and concentration: [Intact] Fund of knowledge: [Adequate] Mood: ["okay"] Affect: [Euthymic with a full range] DIAGNOSES: 1. Other recurrent depressive disorder. 2. Alcohol use disorder unspecified. ASSESSMENT: Patient appears to be doing well, does not want to take the Zoloft as he reports he had been taking it as an outpatient, will observe overnight but if continues to be euthymic without suicidality will have to discharge MANAGEMENT PLAN: Discontinue sertraline, continue home medications. TIME SPENT: 15 minutes. Vital Signs Vital Signs Date Time Temp Pulse Resp B/P (MAP) Pulse Ox O2 Delivery O2 Flow Rate FiO2 05/16/20 08:37 155/80 05/16/20 06:25 98.6 60 18 95 Room Air Laboratory Data 24H Labs Laboratory Tests 2 05/16/20 07:20: Bedside Glucose (Misc Panel) 141H Current Medications Current Medications Medications (Trade) Dose Ordered Sig/Gustavo Route PRN Reason Start Time Stop Time Status Last Admin Dose Admin Acetaminophen (Tylenol Tab) 650 mg Q6HP PRN PO HEADACHE or DISCOMFORT 05/14/20 20:30 Al Hydrox/Mg Hydrox/Simethicone (Mylanta) 30 ml Q4HP PRN PO HEARTBURN/INDIGESTION 05/14/20 20:30 Aspirin (Ecotrin) 81 mg DAILY PO 05/15/20 09:00 05/16/20 08:36 Folic Acid (Folic Acid) 1 mg DAILY PO 05/15/20 09:00 05/14/20 20:39 DC Folic Acid (Folic Acid) 1 mg DAILY PO 05/15/20 09:00 05/16/20 08:36 Home Med (Med Rec Complete!) ASDIRECTED XX 05/14/20 20:45 05/14/20 20:40 DC Isosorbide Mononitrate (Imdur) 60 mg DAILY PO 05/15/20 09:00 05/15/20 16:20 DC 05/15/20 08:47 Lisinopril (Prinivil) 2.5 mg DAILY PO 05/15/20 09:00 05/16/20 08:37 Lorazepam (Ativan) 2 mg ASDIRECTED PRN PO SEE PROTOCOL 05/14/20 19:45 05/14/20 20:39 DC Lorazepam (Ativan) 2 mg ASDIRECTED PRN PO SEE PROTOCOL 05/14/20 20:30 Magnesium Hydroxide (Milk Of Magnesia) 30 ml DAILYPRN PRN PO CONSTIPATION 05/14/20 20:30 Magnesium Oxide (Mag-Ox) 400 mg BID PO 05/14/20 21:00 05/16/20 08:36 Metoprolol Tartrate (Lopressor) 12.5 mg QHS PO 05/14/20 21:00 05/15/20 20:19 Multivitamins (Theragram-M) 1 tab DAILY PO 05/15/20 09:00 05/14/20 20:40 DC Multivitamins (Theragram-M) 1 tab DAILY PO 05/15/20 09:00 05/16/20 08:35 Olanzapine (ZyPREXA ZYDIS) 5 mg Q4HP PRN PO AGITATION 05/14/20 20:30 Pantoprazole Sodium (Protonix) 40 mg DAILY PO 05/15/20 09:00 05/16/20 08:35 Ropinirole HCl (Requip) 1 mg BID PO 05/14/20 21:00 05/16/20 08:36 Rosuvastatin Calcium (Crestor) 40 mg QPM PO 05/14/20 21:00 05/15/20 20:21 Sertraline HCl (Zoloft) 150 mg DAILY PO 05/15/20 09:00 05/15/20 08:38 DC Sertraline HCl (Zoloft) 150 mg DAILY PO 05/15/20 09:00 05/15/20 08:46 Thiamine HCl (Thiamine HCl) 100 mg BID PO 05/14/20 21:00 05/17/20 20:59 05/16/20 08:35 Thiamine HCl (Thiamine HCl) 100 mg BID PO 05/14/20 21:00 05/14/20 20:39 DC Trazodone HCl (Desyrel) 50 mg QHSP PRN PO INSOMNIA 05/14/20 20:30 05/15/20 20:20 Allergies Coded Allergies: No Known Allergies (Unverified , 05/14/20) MARCIA ARAYA DO May 16, 2020 12:45
[2020-05-16 16:23] VITALS: BP 139/71
--- NOTE | 2020-05-16 16:40 | IPNPDOC ---
Text Note Date of Service The patient was seen on 05/16/20. NOTE Subjective: -No pre-syncopal episode since yesterday morning -No dizziness, nausea, emesis, chest pain, palpitations Objective: Vitals: HDS, afebrile, stable on room air HEENT: NCAT, PERRLA, EOMI, MMM Pulm: CTAB Cardiac: RRR, no mrg Abd: Normoactive sounds, soft, NTND Ext: WWP, no LE edema Neuro: AOx3, ambulatory, 5/5 strength and tone in all four extremities, grossly nonfocal examination Labs: already reviewed, no new interval labs Assessment: 70-year-old M with a history of CAD s/p CABG, GERD, HTN, HLD, TONJA, RLS, depression, alcohol use disorder who presented status post mechanical fall while intoxicated and admitted to the [facility] for depression and history of suicidal statements and had a noted symptomatic hypotensive episode that occurred shortly after receiving his daily multiple antihypertensive medications. Coronary arterial disease s/p CABG: -continue home ASA, lisinopril, metoprolol -continue PRN SLN -Discontinued Imdur given recent symptomatic hypotension Gastroesophageal reflux disease (GERD): -Continue proton pump inhibitor. Dyslipidemia: -Continue statin. Hypertension. Currently normotensive. -Discontinued Imdur -Continue Lisinopril -Continue metoprolol DVT prophylaxis: -ambulatory Depression with expression of suicidal thoughts: -Per primary psych team Alcohol use disorder: -CIWA protocol per primary psych team RLS: -continue home ropinirole Given that the patient has not had anymore noted hypotensive episodes, medicine will sign off at this time. Please do reconsult if further questions arise. VS,Fishbone, I+O VS, Fishbone, I+O Vital Signs Date Time Temp Pulse Resp B/P (MAP) Pulse Ox O2 Delivery O2 Flow Rate FiO2 05/16/20 06:25 98.6 60 18 133/64 (87) 95 Room Air TIA SANTACRUZ MD May 16, 2020 08:21
[2020-05-16] MEDS: METOPROLOL TART 25 MG TABLET PO SCH (20:37)
[2020-05-16] MEDS: ROSUVASTATIN 10 MG TAB (CRESTOR) PO SCH (20:39)
[2020-05-16] MEDS: traZODone 50 MG TAB PO PRN (21:52)
[2020-05-16 21:56] VITALS: BP 143/82
[2020-05-16] MEDS ORDERED: PILL CUTTER 1 EACH XX PRN (22:15)
[2020-05-17 05:59] VITALS: BP 126/70
[2020-05-17] MEDS: rOPINIRole 1MG TAB PO SCH (08:36)
[2020-05-17] MEDS: ASPIRIN 81 MG ENTERIC TAB PO SCH (08:36)
[2020-05-17 08:40] VITALS: BP 148/89
[2020-05-17] MEDS: PANTOPRAZOLE 40MG TAB (PROTONIX) PO SCH (08:40)
[2020-05-17] MEDS: lisinopriL 5 MG TAB PO SCH (08:40)
[2020-05-17] MEDS: MULTIVITAMINS/MINERALS THERAP 1 TAB PO SCH (08:40)
[2020-05-17] MEDS: THIAMINE 100 MG TAB PO SCH (08:40)
[2020-05-17] MEDS: FOLIC ACID 1 MG TAB PO SCH (08:40)
[2020-05-17] MEDS: MAGNESIUM OXIDE 400 MG TAB (MAG-OX) PO SCH (08:41)
--- NOTE | 2020-05-18 09:44 | MHDSPDOC ---
[facility] Discharge Summary Discharge Summary DATE OF ADMISSION: May 14, 2020 at 20:28 DATE OF DISCHARGE: May 17, 2020 at 13:00 DISCHARGE DIAGNOSES: Unspecified Depressive Disorder Alcohol Use Disorder Alcohol Intoxication REASON FOR ADMISSION: Patient is a 70 -year-old , Employed, [place], , male, who [facility]. He states,"I was working on peeling garlic and the next thing I know I was on the floor. My found me and called EMS." According to his , she called 911 because he was intoxicated and fell on the kitchen floor. When he was brought tot ED, he was uncooperative with the Police and EMS and [facility] staff. Patient's provided collateral reporting that he had been making frequent suicidal comments to her, expressing hopelessness. She reports that he drinks to intoxication and is at risk for suicide. He reports that he has stopped taking his medications and has been admitted for Alcohol Use. His Blood Alcohol was 0.23 CONSULTANTS INVOLVED: See Medical H + P by Hospitalist TREATMENT AND PROGRESS ON THE UNIT: Patient was [facility] on a 9.39 legal status he was afforded the following treatment modalities: 1) Individual Therapy 2) Group Therapy 3) Medication Management 4) Milieu Therapy 5) Safe Environment HOSPITAL COURSE: Patient was [facility] a 9.39 legal status and was started on home medications. He had one hypotensive episodes while in the hospital and the patient reported that he felt this right before he fell at home which subsequently is the reason he was sent here. On initial interview, the patient denied depression and anxiety and suicidal thoughts. He was not o bserved with paranoia, kati, psychosis, obsessions, ruminations or delusional thinking. He did however appear to minimize his ETOH use and stated that he had his substance use under control. He refused any recommendations for rehab. He was social with peers, cooperative in the Milieu and compliant with treatment regimen. DISCHARGE ASSESSMENT: Patient is alert and oriented, smiles on approach. He again denied depression or anxiety and suicidal thinking. He states that he was not suicidal and that he would be happy to return to work. He states he likes working and this helps him stay busy. He presented with normal mental status and he meets criteria for discharge today. MENTAL STATUS EXAMINATION ON DISCHARGE: Patient is a 70 -year-old , Employed, [place], , male, who is [facility]. General Appearance: well groomed, appears stated age, hospital scubs/clothing Build: overweight Demeanor: average, other (minimizing) Eye Contact: average Activity: average Behavior: cooperative Speech: clear, normal volume, reg/rate,rhythm,volume Mood: euthymic Affect: full Thought Process: logical/linear Thought Content (Delusions): none reported Thought Content (Other): none reported Thought Content (Aggressive): none reported Perception (Hallucinations): none reported Perception (Other): none reported Cognition (Impairment of): none reported Cognition(Intelligence Est.): average Oriented: Awake, Alert, Oriented times three Insight: fair Judgment: Fair Psychosis: Denies MEDICATIONS ON DISCHARGE: See Reconciliation PLAN/FOLLOWUP ARRANGEMENTS: See 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 Vital Signs/I&Os Vital Signs Date Time Temp Pulse Resp B/P (MAP) Pulse Ox O2 Delivery O2 Flow Rate FiO2 05/17/20 08:40 148/89 05/17/20 05:59 98.4 64 18 95 Room Air Medications Scheduled Aspirin (Aspirin EC) 81 Mg Tablet.dr, 81 MG PO DAILY, (Reported) Isosorbide Mononitrate (Isosorbide Mononitrate ER) 60 Mg Tab, 60 MG PO DAILY, (Reported) Lisinopril (Lisinopril) 5 Mg Tab, 2.5 MG PO DAILY, (Reported) Magnesium Oxide (Magnesium Oxide) 400 Mg Tablet, 400 MG PO BID, (Reported) Metoprolol Tartrate (Metoprolol Tartrate) 25 Mg Tab, 12.5 MG PO QHS, (Reported) Pantoprazole Sodium (Pantoprazole Sodium) 40 Mg Tab, 40 MG PO DAILY, (Reported) Ropinirole HCl (Ropinirole HCl) 1 Mg Tab, 1 MG PO BID, (Reported) Rosuvastatin Calcium (Crestor) 40 Mg Tab, 40 MG PO QPM, (Reported) Trazodone HCl (Trazodone HCl) 50 Mg Tablet, 50 MG PO QHS, (Reported) Scheduled PRN Betamethasone Dipropionate (Betamethasone Dipropionate) 0.05% Cream..g., 1 APLCT TOP BID PRN for RASH, (Reported) APPLY TO AFFECTED AREAS Nitroglycerin (Nitrostat) 0.4 Mg Subl, 0.4 MG SL NITRO PRN for CHEST PAIN, (Reported) Miscellaneous Medications [Comments] , (Reported) [facility], [facility] REFUSED TO TALK TO MED HIDTORIAN. [Comments] , (Reported) PT REFUSED TO TALK TO MED HISTORIAN, MED LIST WAS GIVEN BY THE ID Allergies Coded Allergies: No Known Allergies (Unverified , 05/14/20) KULWANT URENA NP May 18, 2020 09:44
== END 2020-05-17 13:00 | disposition home or self-care (01) | DRG 881 ==
LOC: M ED 12:59 → EDBD 12:59 → M ED INP 20:28 → M PSY 21:49
PROVIDERS: ADMIT Psychiatry & Neurology Addiction Medicine; ATTEND Psychiatry & Neurology Psychiatry
DX: F32.9 Major depressive disorder, single episode, unspecified (principal); F10.129 Alcohol abuse with intoxication, unspecified; I25.10 Atherosclerotic heart disease of native coronary artery without angina pectoris; K21.9 Gastro-esophageal reflux disease without esophagitis; E78.5 Hyperlipidemia, unspecified; I10 Essential (primary) hypertension; G25.81 Restless legs syndrome; G47.33 Obstructive sleep apnea (adult) (pediatric); I95.9 Hypotension, unspecified; Z95.1 Presence of aortocoronary bypass graft; Z20.828 Contact with and (suspected) exposure to other viral communicable diseases; Z98.41 Cataract extraction status, right eye; Z98.42 Cataract extraction status, left eye; Z90.49 Acquired absence of other specified parts of digestive tract; Z87.891 Personal history of nicotine dependence; Z79.82 Long term (current) use of aspirin; Z79.899 Other long term (current) drug therapy

== ENCOUNTER 2021-09-18 06:46 | Day surgery (SDC) | payer OTHER ==
[~2021-09-18] VITALS: Ht 182.9 cm; Wt 103.4 kg
[~2021-09-18 06:46] MED LIST changes: +ASPI81TA26 PO; +COMMENTS; +ISOS1TAB35 PO; +ISOS1TAB36 PO; -ISOS30TA4 PO; -ISOS60TA2 PO; -LISI-538 PO; -LISI-542 PO; +LISI20TA33 PO; +LISI5TAB11 PO; +MAGN400T2 PO; +METF-839 PO; +METH-1164 PO; +NS 1,000 ML IV ONE; +SERT-138 PO; +SERT-141 PO; +TRAZ-186 PO; +[UNRECOGNIZED DRUG - OTHER]
[2021-09-18] MEDS ORDERED: LIDOCAINE 2% 100MG/5ML SDV (FOR ANES.) As Ordered ONE (07:10)
[2021-09-18] MEDS ORDERED: propofoL 200 MG/20 ML VIAL As Ordered ONE ×4 (07:10→09:05)
[2021-09-18] MEDS ORDERED: ePHEDrine SULFATE 25 MG/5 ML(5MG/ML) SYRINGE As Ordered ONE ×2 (08:09→09:05)
[2021-09-18 10:06] VITALS: BP 182/81
== END 2021-09-18 10:05 | disposition home or self-care (01) ==
LOC: M OPP 06:46
PROVIDERS: ATTEND Surgery
DX: D12.2 Benign neoplasm of ascending colon (principal); D12.5 Benign neoplasm of sigmoid colon; K62.1 Rectal polyp; R19.5 Other fecal abnormalities; Z79.82 Long term (current) use of aspirin; Z79.84 Long term (current) use of oral hypoglycemic drugs; Z79.899 Other long term (current) drug therapy

== ENCOUNTER → 2021-10-31 | Outpatient (CLI) | payer OTHER ==
[~2021-10-31] MED LIST changes: +NAPR-885 PO; -NS 1,000 ML IV ONE
== END ==
LOC: M LABSMTC 09:49
PROVIDERS: ATTEND Anesthesiology
DX: Z01.818 Encounter for other preprocedural examination (principal); Z11.52 Encounter for screening for COVID-19

== ENCOUNTER 2021-11-05 11:15 | Day surgery (SDC) | payer OTHER ==
[~2021-11-05] VITALS: Ht 182.9 cm; Wt 99.3 kg
[~2021-11-05 11:15] MED LIST changes: +NS 1,000 ML IV ONE
[2021-11-05] MEDS ORDERED: LIDOCAINE 2% 100MG/5ML SDV (FOR ANES.) As Ordered ONE (14:00)
[2021-11-05] MEDS ORDERED: propofoL 200 MG/20 ML VIAL As Ordered ONE ×3 (14:00→15:05)
[2021-11-05 15:50] VITALS: BP 155/72
== END 2021-11-05 16:40 | disposition home or self-care (01) ==
LOC: M OPP 11:15
PROVIDERS: ATTEND Surgery
DX: D01.2 Carcinoma in situ of rectum (principal); Z86.010 Personal history of colon polyps; Z79.82 Long term (current) use of aspirin; Z79.84 Long term (current) use of oral hypoglycemic drugs; Z79.899 Other long term (current) drug therapy; Z80.1 Family history of malignant neoplasm of trachea, bronchus and lung; Z95.1 Presence of aortocoronary bypass graft; Z87.891 Personal history of nicotine dependence

== ENCOUNTER → 2022-02-02 | Outpatient (CLI) | payer OTHER ==
[~2022-02-02] MED LIST changes: -NS 1,000 ML IV ONE
== END ==
LOC: M LABSMTC 10:34
PROVIDERS: ATTEND Anesthesiology
DX: Z01.818 Encounter for other preprocedural examination (principal); Z11.52 Encounter for screening for COVID-19

== ENCOUNTER 2022-02-06 09:10 | Day surgery (SDC) | payer OTHER ==
[~2022-02-06] VITALS: Ht 182.9 cm; Wt 98.9 kg
[~2022-02-06 09:10] MED LIST changes: +NS 1,000 ML IV ONE
[2022-02-06] MEDS ORDERED: propofoL 200 MG/20 ML VIAL As Ordered ONE ×2 (10:32→10:44)
[2022-02-06] MEDS ORDERED: LIDOCAINE 2% 100MG/5ML SDV (FOR ANES.) As Ordered ONE (10:44)
[2022-02-06 11:49] VITALS: BP 140/63
== END 2022-02-06 11:49 | disposition home or self-care (01) ==
LOC: M OPP 09:10
PROVIDERS: ATTEND Surgery
DX: D12.8 Benign neoplasm of rectum (principal); Z86.010 Personal history of colon polyps; Z98.890 Other specified postprocedural states; Z09 Encounter for follow-up examination after completed treatment for conditions other than malignant neoplasm; E11.9 Type 2 diabetes mellitus without complications; G47.30 Sleep apnea, unspecified; I25.810 Atherosclerosis of coronary artery bypass graft(s) without angina pectoris; F32.9 Major depressive disorder, single episode, unspecified; F41.9 Anxiety disorder, unspecified; Z79.02 Long term (current) use of antithrombotics/antiplatelets; Z79.52 Long term (current) use of systemic steroids; Z79.82 Long term (current) use of aspirin; Z79.84 Long term (current) use of oral hypoglycemic drugs; Z79.899 Other long term (current) drug therapy; Z90.49 Acquired absence of other specified parts of digestive tract; Z96.652 Presence of left artificial knee joint; Z86.711 Personal history of pulmonary embolism; Z87.891 Personal history of nicotine dependence

== ENCOUNTER → 2022-06-11 | Outpatient (CLI) | payer OTHER ==
[~2022-06-11] MED LIST changes: -NS 1,000 ML IV ONE
== END ==
LOC: M RAD 11:54
PROVIDERS: ATTEND Internal Medicine
DX: I70.8 Atherosclerosis of other arteries (principal); I70.203 Unspecified atherosclerosis of native arteries of extremities, bilateral legs; M54.16 Radiculopathy, lumbar region

== ENCOUNTER → 2022-07-05 | Outpatient (CLI) | payer OTHER | LOC: M RAD 11:01 | PROVIDERS: ATTEND Internal Medicine | DX: M48.061 Spinal stenosis, lumbar region without neurogenic claudication (principal); M51.27 Other intervertebral disc displacement, lumbosacral region; M54.16 Radiculopathy, lumbar region ==

== ENCOUNTER → 2022-07-24 | Outpatient (CLI) | payer MEDICARE, OTHER ==
[~2022-07-24] MED LIST changes: +PROHANCE 279.3MG/ML 15ML VIAL ONE; +PROHANCE 279.3MG/ML 5ML VIAL ONE
== END ==
LOC: M PLAIMG 07:56
PROVIDERS: ATTEND Psychiatry & Neurology Neurology
DX: G21.8 Other secondary parkinsonism (principal); J32.9 Chronic sinusitis, unspecified; I67.82 Cerebral ischemia; R90.82 White matter disease, unspecified
CPT/HCPCS: 70553; A9576

== ENCOUNTER → 2022-09-01 | Outpatient (CLI) | payer OTHER, MEDICARE ==
[~2022-09-01] MED LIST changes: +CARB25TA9 PO; -PROHANCE 279.3MG/ML 15ML VIAL ONE; -PROHANCE 279.3MG/ML 5ML VIAL ONE; +ZOLO100T PO
== END ==
LOC: M LABSMTC 08:15
PROVIDERS: ATTEND Anesthesiology
DX: Z20.828 Contact with and (suspected) exposure to other viral communicable diseases (principal)

== ENCOUNTER 2022-09-04 06:50 | Day surgery (SDC) | payer MEDICARE, OTHER ==
[~2022-09-04] VITALS: Ht 182.9 cm; Wt 100.2 kg
[~2022-09-04 06:50] MED LIST changes: +NS 1,000 ML IV ONE
[2022-09-04] MEDS ORDERED: propofoL 500 MG/50 ML VIAL As Ordered ONE (07:47)
[2022-09-04] MEDS ORDERED: LIDOCAINE 2% 100MG/5ML SDV (FOR ANES.) As Ordered ONE (07:47)
[2022-09-04 08:29] VITALS: BP 112/53
== END 2022-09-04 08:45 | disposition home or self-care (01) ==
LOC: M OPP 06:50
PROVIDERS: ATTEND Surgery
DX: Z86.010 Personal history of colon polyps (principal); D12.6 Benign neoplasm of colon, unspecified; I10 Essential (primary) hypertension; E11.9 Type 2 diabetes mellitus without complications; G47.30 Sleep apnea, unspecified; F32.9 Major depressive disorder, single episode, unspecified; F41.9 Anxiety disorder, unspecified; Z86.711 Personal history of pulmonary embolism; Z87.891 Personal history of nicotine dependence; Z79.52 Long term (current) use of systemic steroids; Z79.02 Long term (current) use of antithrombotics/antiplatelets; Z79.82 Long term (current) use of aspirin; Z79.84 Long term (current) use of oral hypoglycemic drugs; Z79.899 Other long term (current) drug therapy

== ENCOUNTER → 2022-10-30 | Outpatient (CLI) | payer MEDICARE, OTHER ==
[~2022-10-30] MED LIST changes: -NS 1,000 ML IV ONE
== END ==
LOC: M PLARAD 10:45
PROVIDERS: ATTEND Internal Medicine
DX: M54.50 Low back pain, unspecified (principal)

== ENCOUNTER 2024-03-10 15:28 | Emergency (ER) | payer OTHER, MEDICARE ==
[~2024-03-10] VITALS: Ht 182.9 cm; Wt 101.6 kg
[~2024-03-10 15:28] MED LIST changes: +FLUO-365 PO; -FLUO20CA22 PO; -K-TA10TA2 PO; +POTA-165 PO; -ROPI1TAB3 PO; +ROPI1TAB73 PO
[2024-03-10 16:55] LABS: RSV AMPLIFICATION NEGATIVE (NEGATIVE)
[2024-03-10 17:08] LABS: VENOUS BASE EXCESS -0.4 (-2.0-2.0); VENOUS HCO3 25.5 MMOL/L (23.0-27.0); VENOUS O2 SATURATION 89.7 % (60.0-80.0); VENOUS PARTIAL PRESSURE CO2 46.9 mmHg (38.0-50.0); VENOUS PARTIAL PRESSURE O2 59.8 mmHg (30.0-50.0); VENOUS PH 7.354 UNITS (7.330-7.430); VENOUS STANDARD HCO3 23.9 MMOL/L
[2024-03-10 17:24] LABS: BASO # 0.1 10^3/uL (0.0-0.2); BASO % 0.9 % (0.0-1.0); EOS # 0.2 10^3/uL (0.0-0.5); HEMATOCRIT 41.2 % (42.0-52.0); HEMOGLOBIN 13.6 g/dl (13.5-17.5); LYMPH # 1.2 10^3/uL (1.5-5.0); LYMPH % 17.2 % (24.0-44.0); MEAN CORPUSCULAR HEMOGLOBIN 30.6 pg (27.0-33.0); MEAN CORPUSCULAR VOLUME 92.6 fl (80.0-96.0); MONO # 0.6 10^3/uL (0.0-0.8); MONO % 8.9 % (2.0-8.0); NEUTROPHILS # 4.5 10^3/uL (1.5-8.5); NEUTROPHILS % 67.2 % (36.0-66.0); PLATELET COUNT, AUTOMATED 149 10^3/uL (150-450); RED BLOOD COUNT 4.45 10^6/uL (4.30-6.10); WHITE BLOOD COUNT 6.7 10^3/uL (4.0-10.0)
[2024-03-10 17:43] LABS: ALBUMIN 3.9 G/DL (3.2-5.2); ALKALINE PHOSPHATASE 70 U/L (46-116); ALT/SGPT 24 U/L (7.0-40); AST/SGOT 20 U/L (<34); BILIRUBIN,DIRECT 0.3 MG/DL (<0.4); BILIRUBIN,TOTAL 0.6 MG/DL (0.3-1.2); BLOOD UREA NITROGEN 20 MG/DL (9-23); CALCIUM LEVEL 9.3 MG/DL (8.3-10.6); CARBON DIOXIDE LEVEL 27 MMOL/L (20-31); CHLORIDE LEVEL 105 MMOL/L (98-107); CK-MB VALUE MASS 4.8 NG/ML (<3.6); CREATININE FOR GFR 1.04 MG/DL (0.70-1.30); GLOMERULAR FILTRATION RATE > 60.0 (>42); GLUCOSE, FASTING 102 MG/DL (74-106); POTASSIUM SERUM 4.7 MMOL/L (3.5-5.1); SODIUM LEVEL 136 MMOL/L (136-145); TOTAL PROTEIN 6.6 G/DL (5.7-8.2)
[2024-03-10 17:44] LABS: CPK CREATINE PHOSPHOKINASE 110 U/L (46-171); MB/CK RELATIVE INDEX 4.36 (< OR =4)
[2024-03-10] MEDS ORDERED: ISOVUE-370 76% 100ML VIAL As Ordered ONE (18:08)
[2024-03-10 19:37] VITALS: BP 124/76; TEMP 98.6; O2SAT 98
== END 2024-03-10 19:40 | disposition home or self-care (01) ==
LOC: M ED 15:28
DX: R06.00 Dyspnea, unspecified (principal); E11.9 Type 2 diabetes mellitus without complications; I10 Essential (primary) hypertension; F41.9 Anxiety disorder, unspecified; F32.A Depression, unspecified; G20.C Parkinsonism, unspecified; Z95.1 Presence of aortocoronary bypass graft
CPT/HCPCS: 36415; 71045; 71275; 80048; 80076; 82550; 82553; 82803; 83880; 84484; 85025; 87631; 93005; 93041; 94760; 99285; Q9967

== ENCOUNTER 2024-08-09 13:08 | Emergency (ER) | payer OTHER, MEDICARE ==
[~2024-08-09] VITALS: Ht 180.3 cm; Wt 106.8 kg
[2024-08-09 16:09] LABS: BASO # 0.1 10^3/uL (0.0-0.2); BASO % 0.6 % (0.0-1.0); EOS # 0.2 10^3/uL (0.0-0.5); EOS % 2.6 % (0.0-3.0); HEMATOCRIT 41.9 % (42.0-52.0); HEMOGLOBIN 13.9 g/dl (13.5-17.5); LYMPH # 0.9 10^3/uL (1.5-5.0); LYMPH % 11.4 % (24.0-44.0); MEAN CORPUSCULAR HEMOGLOBIN 29.7 pg (27.0-33.0); MEAN CORPUSCULAR HGB CONC 33.2 g/dl (32.0-36.5); MEAN CORPUSCULAR VOLUME 89.5 fl (80.0-96.0); MONO # 0.7 10^3/uL (0.0-0.8); MONO % 8.7 % (2.0-8.0); NEUTROPHILS # 6.1 10^3/uL (1.5-8.5); NEUTROPHILS % 75.7 % (36.0-66.0); PLATELET COUNT, AUTOMATED 136 10^3/uL (150-450); RED BLOOD COUNT 4.68 10^6/uL (4.30-6.10); WHITE BLOOD COUNT 8.1 10^3/uL (4.0-10.0)
[2024-08-09 16:39] LABS: ALKALINE PHOSPHATASE 73 U/L (40-129); ALT/SGPT 24 U/L (7.0-40); AST/SGOT 32 U/L (<34); BILIRUBIN,DIRECT 0.3 MG/DL (<0.4); BILIRUBIN,TOTAL 0.9 MG/DL (0.3-1.2); BLOOD UREA NITROGEN 19 MG/DL (9-23); CALCIUM LEVEL 8.9 MG/DL (8.3-10.6); CARBON DIOXIDE LEVEL 29 MMOL/L (20-31); CHLORIDE LEVEL 105 MMOL/L (98-107); CREATININE FOR GFR 1.03 MG/DL (0.70-1.30); GLOMERULAR FILTRATION RATE > 60.0 (>42); GLUCOSE, FASTING 90 MG/DL (74-106); POTASSIUM SERUM 4.7 MMOL/L (3.5-5.1); SODIUM LEVEL 141 MMOL/L (136-145); TOTAL PROTEIN 6.9 G/DL (5.7-8.2)
[2024-08-09 19:39] LABS: CK-MB VALUE MASS 8.4 NG/ML (<3.6)
[2024-08-09 19:46] LABS: CPK CREATINE PHOSPHOKINASE 197 U/L (46-171); MB/CK RELATIVE INDEX 4.26 (< OR =4)
[2024-08-09] MEDS ORDERED: ISOVUE-370 76% 100ML VIAL As Ordered ONE (20:02)
[2024-08-09 20:14] LABS: CK-MB VALUE MASS 8.3 NG/ML (<3.6)
[2024-08-09 20:15] LABS: MB/CK RELATIVE INDEX 4.79 (< OR =4)
[2024-08-09 21:33] VITALS: BP 165/67; TEMP 97.7; O2SAT 96
== END 2024-08-09 21:37 | disposition home or self-care (01) ==
LOC: M ED 13:08
DX: R06.00 Dyspnea, unspecified (principal); E11.9 Type 2 diabetes mellitus without complications; I10 Essential (primary) hypertension; E78.5 Hyperlipidemia, unspecified; Z95.1 Presence of aortocoronary bypass graft; Z87.891 Personal history of nicotine dependence; R94.31 Abnormal electrocardiogram [ECG] [EKG]; Z79.899 Other long term (current) drug therapy; Z79.82 Long term (current) use of aspirin
CPT/HCPCS: 36415; 71045; 71275; 80048; 80076; 82550; 82553; 84484; 85025; 87486; 87581; 87633; 87798; 93005; 93041; 94760; 99285; Q9967

== ENCOUNTER 2024-12-30 08:54 | Day surgery (SDC) | payer MEDICARE, OTHER ==
[~2024-12-30] VITALS: Ht 182.9 cm; Wt 101.4 kg
[2024-12-30] MEDS ORDERED: LIDOCAINE 2% 100 MG/5 ML SDV (FOR ANES.) As Ordered ONE (09:52)
[2024-12-30 10:20] VITALS: TEMP 97.2
[2024-12-30 10:40] VITALS: BP 117/59; O2SAT 96
== END 2024-12-30 10:46 | disposition home or self-care (01) ==
LOC: M OPP 08:54
PROVIDERS: ATTEND Surgery
DX: K57.30 Diverticulosis of large intestine without perforation or abscess without bleeding (principal); Z86.0100 Personal history of colon polyps, unspecified; K64.8 Other hemorrhoids; I25.10 Atherosclerotic heart disease of native coronary artery without angina pectoris; I10 Essential (primary) hypertension; E78.00 Pure hypercholesterolemia, unspecified; E11.9 Type 2 diabetes mellitus without complications; K21.9 Gastro-esophageal reflux disease without esophagitis; M19.90 Unspecified osteoarthritis, unspecified site; F41.9 Anxiety disorder, unspecified; F32.A Depression, unspecified; G47.33 Obstructive sleep apnea (adult) (pediatric); Z86.711 Personal history of pulmonary embolism; Z79.82 Long term (current) use of aspirin; Z79.84 Long term (current) use of oral hypoglycemic drugs; Z79.899 Other long term (current) drug therapy

== ENCOUNTER → 2025-02-16 | Outpatient (CLI) | payer OTHER, MEDICARE ==
[2025-02-16 13:07] LABS: MAGNESIUM LEVEL 2.0 MG/DL (1.8-2.4)
[2025-02-16 13:09] LABS: C REACTIVE PROTEIN QUANTITATIV < 0.50 MG/DL (<1.0); FREE T4 1.03 NG/DL (0.89-1.76)
[2025-02-16 13:12] LABS: TOTAL 25(OH) VITAMIN D 41.3 NG/ML (20.0-100.0)
[2025-02-20 11:07] LABS: NT PRO BNP SO 308 pg/mL (<450)
[2025-02-20 16:43] LABS: ALDOLASE 10.5 U/L (< OR = 8.1)
== END ==
LOC: M WUC 10:40
PROVIDERS: ATTEND Internal Medicine Critical Care Medicine
DX: R06.00 Dyspnea, unspecified (principal); Z79.899 Other long term (current) drug therapy

== ENCOUNTER → 2025-02-27 | Outpatient (CLI) | payer MEDICARE, OTHER ==
[2025-03-01 17:41] LABS: ALDOLASE 10.2 U/L (< OR = 8.1)
== END ==
LOC: M WUC 12:37
PROVIDERS: ATTEND Internal Medicine Critical Care Medicine
DX: M60.9 Myositis, unspecified (principal)